=== PATIENT | female | born 1965 | race African-American/Black ===

== ENCOUNTER 2016-06-23 13:42 | Emergency (ER) | payer MEDICARE, OTHER ==
[~2016-06-23] VITALS: Ht 157.5 cm; Wt 78.0 kg
[2016-06-23 14:20] VITALS: BP 168/95
[2016-06-23] MEDS ORDERED: SILV20CR4 TP (15:11)
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
== END 2016-06-23 15:20 | disposition home or self-care (01) ==
LOC: ER 13:42
DX: T23.121A Burn of first degree of single right finger (nail) except thumb, initial encounter (principal); T23.261A Burn of second degree of back of right hand, initial encounter; Z88.0 Allergy status to penicillin; Z88.5 Allergy status to narcotic agent; Z91.013 Allergy to seafood; X10.2XXA Contact with fats and cooking oils, initial encounter; Y93.89 Activity, other specified; Y92.090 Kitchen in other non-institutional residence as the place of occurrence of the external cause; Y99.8 Other external cause status
CPT/HCPCS: 99283

== ENCOUNTER 2016-07-27 12:11 | Emergency (ER) | payer OTHER, MEDICARE ==
[~2016-07-27] VITALS: Ht 157.5 cm; Wt 73.0 kg
[~2016-07-27 12:11] MED LIST: SILV20CR4 TP
--- NOTE | 2016-07-27 14:37 | RAD ---
EXAM: Right knee, 3 views. HISTORY: Pain. COMPARISON: None. FINDINGS: Frontal, lateral and oblique views of the right knee are obtained. There is a lateral compartment unicompartmental knee arthroplasty. There is mild medial compartment joint space narrowing and chondrocalcinosis. There is no fracture, dislocation or subluxation. No effusion is seen. There are vascular calcifications. IMPRESSION: 1. Lateral compartment unicompartmental knee arthroplasty. 2. Mild medial compartment joint space narrowing with subchondral sclerosis.
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
--- NOTE | 2016-07-27 14:38 | RAD ---
EXAM: Right tibia and fibula, 2 views. HISTORY: Pain. COMPARISON: None. FINDINGS: Frontal and lateral views of the tibia and fibula are obtained. There is no fracture, dislocation or subluxation. There are vascular calcifications. The knee is excluded from the [id number]. IMPRESSION: No acute osseous finding.
[2016-07-27] MEDS ORDERED: HYDR-971 PO (15:18)
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
[2016-07-27 15:25] VITALS: BP 142/71
== END 2016-07-27 15:36 | disposition home or self-care (01) ==
LOC: ER 12:11
DX: M79.604 Pain in right leg (principal); M25.561 Pain in right knee; M25.551 Pain in right hip; N19 Unspecified kidney failure; Z99.2 Dependence on renal dialysis; Z88.0 Allergy status to penicillin; Z88.5 Allergy status to narcotic agent; Z91.013 Allergy to seafood; V49.40XA Driver injured in collision with unspecified motor vehicles in traffic accident, initial encounter; Y93.89 Activity, other specified; Y99.8 Other external cause status; Y92.89 Other specified places as the place of occurrence of the external cause
CPT/HCPCS: 73502; 73562; 73590; 99284

== ENCOUNTER 2016-08-14 18:24 | Emergency (ER) | payer MEDICARE, OTHER ==
[~2016-08-14] VITALS: Ht 157.5 cm; Wt 80.3 kg
[~2016-08-14 18:24] MED LIST changes: +HYDR-971 PO
[2016-08-14 18:27] VITALS: BP 130/65
--- NOTE | 2016-08-14 18:57 | PHYS DOC ---
Past Medical History Past Medical History: Other Additional Past Medical Histor: HX DIALYSIS, R RENAL FAILURE Past Surgical History: Cholecystectomy, Other Additional Past Surgical Histo: RIGHT KIDNEY TRANSPLANT, graft placement, thyroidectomy Alcohol Use: None Drug Use: None Adult General Chief Complaint Chief Complaint: EYE PROBLEMS HPI HPI Patient is a 50 year old female presents emergency department stating that she was cleaning when some bleach flew up into her eyes around 4:00 this afternoon. She states that she did try to rinse her eyes out for approximately 10 seconds with no relief. She states she did have her eyeglasses on although she states that her eyes are still stinging and burning. They appear to be very red and swollen. She denies any visual difficulty. She denies any drainage from the eyes. Review of Systems Review of Systems Constitutional: Denies fever or chills [] Eyes: Denies change in visual acuity, C/o bilateral eye redness, with stinging of bilateral eyes HENT: Denies nasal congestion or sore throat [] Respiratory: Denies cough or shortness of breath [] Cardiovascular: No additional information not addressed in HPI [] GI: Denies abdominal pain, nausea, vomiting, bloody stools or diarrhea [] : Denies dysuria or hematuria [] Musculoskeletal: Denies back pain or joint pain [] Integument: Denies rash or skin lesions [] Neurologic: Denies headache, focal weakness or sensory changes [] Current Medications Current Medications Current Medications Medications (Trade) Dose Ordered Sig/[place] Start Time Stop Time Status Last Admin Dose Admin Tetracaine HCl (Tetracaine) 1 drop 1X ONCE 08/14/16 19:00 08/14/16 19:01 DC 08/14/16 18:54 1 DROP Allergies Allergies Allergies Coded Allergies Type Severity Reaction Last Updated Verified Penicillins Allergy Intermediate 06/23/16 Yes morphine Allergy Intermediate 06/23/16 Yes shellfish derived Allergy Intermediate 06/23/16 Yes Physical Exam Physical Exam Constitutional: Well developed, well nourished, no acute distress, non-toxic appearance. [] HENT: Normocephalic, atraumatic, bilateral external ears normal, oropharynx moist, no oral exudates, nose normal. [] Eyes: PERRLA, EOMI, conjunctiva red with no drainage or discharge noted bilateral eyes appear to be swollen. Neck: Normal range of motion, no tenderness, supple, no stridor. [] Cardiovascular:Heart rate regular rhythm, no murmur [] Lungs & Thorax: Bilateral breath sounds clear to auscultation [] Skin: Warm, dry, no erythema, no rash. [] Back: No tenderness Extremities: No tenderness, no cyanosis, no clubbing, ROM intact, no edema. [] Neurologic: Alert and oriented X 3, normal motor function, normal sensory function, no focal deficits noted. [] Psychologic: Affect normal, judgement normal, mood normal. [] Current Patient Data Vital Signs Vital Signs Date Time Temp Pulse Resp B/P Pulse Ox O2 Delivery O2 Flow Rate FiO2 08/14/16 18:27 97.7 77 20 100 Room Air 97.7 EKG EKG [] Radiology/Procedures Radiology/Procedures [] Course & Med Decision Making Course & Med Decision Making Pertinent Labs and Imaging studies reviewed. (See chart for details) Tetracaine was placed in bilateral eyes with eye irrigation for approximately 15 minutes was provided. Poison control was notified in regards to chemical's to bilateral eyes. The recommendations was to place tetracaine in bilateral eyes and irrigate. Patient states that her eyes feel much better after the irrigation's. Patient will be discharged home with recommendations to follow-up with ophthalmology if she has any eye drainage or any eye discomfort. She was provided with Dr. Calderon's name and number. Patient will be discharged home in stable condition recommended using safety glasses whenever working around chemicals. Patient agrees with discharge instructions treatment regimens and follow-up recommendations. [] Dragon Disclaimer Dragon Disclaimer This electronic medical record was generated, in whole or in part, using a voice recognition dictation system. Departure Departure Impression: Primary Impression: Chemical exposure of eye Disposition: 01 HOME, SELF-CARE Condition: STABLE Referrals: UNKNOWN PCP NAME (PCP) JERRI CALDERON MD Patient Instructions: Eye - Conjunctival Foreign Body Additional Instructions: Activity as tolerated. Tylenol for pain and discomfort. Medication as prescribed. You may use ice packs to the eyes to help with pain and irritation as well as swelling. Follow-up with Dr. Calderon as needed for continued eye irritation. Return back to emergency department sign symptoms of become worse. Scripts Ofloxacin (Ocuflox)5 Ml Drops1-2 Drop EACHEYE BID #[address] in the right eye for the next 7 days Prov:KAYLA FALL CUSTOM FEED CORN OPERATOR 08/14/16 KAYLA FALL APRN Aug 14, 2016 18:57
[2016-08-14] MEDS ORDERED: TETRACAINE 0.5% OPHTH SOLUTION 4ML BOTTLE. OU ONE (19:00)
[2016-08-14] MEDS ORDERED: OFLO5DRO EACHEYE (19:54)
== END 2016-08-14 20:02 | disposition home or self-care (01) ==
LOC: ER 18:24
DX: Z77.098 Contact with and (suspected) exposure to other hazardous, chiefly nonmedicinal, chemicals (principal); N18.9 Chronic kidney disease, unspecified; Z94.0 Kidney transplant status; Z99.2 Dependence on renal dialysis; Z88.5 Allergy status to narcotic agent; Z91.013 Allergy to seafood; Z88.0 Allergy status to penicillin
CPT/HCPCS: 99283

== ENCOUNTER 2016-09-07 23:35 | Emergency (ER) | payer MEDICARE, OTHER ==
[~2016-09-07] VITALS: Ht 157.5 cm; Wt 79.4 kg
[~2016-09-07 23:35] MED LIST changes: +OFLO5DRO EACHEYE
[2016-09-07 23:58] VITALS: BP 193/83
[2016-09-08] MEDS ORDERED: HYDR-971 PO (00:21)
[2016-09-08] MEDS ORDERED: ACYC800T PO (00:21)
--- NOTE | 2016-09-08 00:21 | PHYS DOC ---
Past Medical History Past Medical History: Other Additional Past Medical Histor: HX DIALYSIS, R RENAL FAILURE Past Surgical History: Cholecystectomy, Other Additional Past Surgical Histo: RIGHT KIDNEY TRANSPLANT, graft placement, thyroidectomy Alcohol Use: None Drug Use: None Adult General Chief Complaint Chief Complaint: SKIN RASH/ABSCESS [facility] Patient is a 50 year old female presents emergency department stating that she has a rash on the left side of her body in her upper breast and back area. Patient states she's had this for the last 2-3 days. She denies any fever, chills or any nausea vomiting. She denies any drainage coming from the site. Patient does have a history of being on dialysis. She is allergic to morphine and penicillin. Review of Systems Review of Systems Constitutional: Denies fever or chills [] Eyes: Denies change in visual acuity, redness, or eye pain [] HENT: Denies nasal congestion or sore throat [] Respiratory: Denies cough or shortness of breath [] Cardiovascular: No additional information not addressed in HPI [] GI: Denies abdominal pain, nausea, vomiting, bloody stools or diarrhea [] : Denies dysuria or hematuria [] Musculoskeletal: Denies back pain or joint pain [] Integument: rash denies skin lesions [] Neurologic: Denies headache, focal weakness or sensory changes [] Endocrine: Denies polyuria or polydipsia [] Allergies Allergies Allergies Coded Allergies Type Severity Reaction Last Updated Verified Penicillins Allergy Intermediate 06/23/16 Yes morphine Allergy Intermediate 06/23/16 Yes shellfish derived Allergy Intermediate 06/23/16 Yes Physical Exam Physical Exam Constitutional: Well developed, well nourished, no acute distress, non-toxic appearance. [] HENT: Normocephalic, atraumatic, bilateral external ears normal, oropharynx moist, no oral exudates, nose normal. [] Eyes: PERRLA, EOMI, conjunctiva normal, no discharge. [] Neck: Normal range of motion, no tenderness, supple, no stridor. [] Cardiovascular:Heart rate regular rhythm, no murmur [] Lungs & Thorax: Bilateral breath sounds clear to auscultation [] Skin: Warm, dry, no erythema. Patient with a rash noted on her upper body on the left chest and left upper back area. Patient appears to have pustular type areas. Back: No tenderness Extremities: No tenderness, no cyanosis, no clubbing, ROM intact, no edema. [] Neurologic: Alert and oriented X 3, normal motor function, normal sensory function, no focal deficits noted. [] Psychologic: Affect normal, judgement normal, mood normal. [] Current Patient Data Vital Signs Vital Signs Date Time Temp Pulse Resp B/P (MAP) Pulse Ox O2 Delivery O2 Flow Rate FiO2 09/07/16 23:58 97.5 72 20 100 Room Air 97.5 EKG EKG [] Radiology/Procedures Radiology/Procedures [] Course & Med Decision Making Course & Med Decision Making Pertinent Labs and Imaging studies reviewed. (See chart for details) Patient will be discharged home with instructions on shingles. She'll be provided with hydrocodone for pain and discomfort. She'll also be instructed to take acyclovir. She is instructed to avoid contact with people as well as people that have not had chickenpox in the past. Patient will be discharged home in stable condition with recommendations to follow-up with primary care physician for any further pain control. Patient agrees with discharge instructions treatment regimens and follow-up recommendations. Patient was also instructed to keep the areas clean dry and cool. [] Dragon Disclaimer Dragon Disclaimer This electronic medical record was generated, in whole or in part, using a voice recognition dictation system. Departure Departure Impression: Primary Impression: Shingles rash Disposition: 01 HOME, SELF-CARE Condition: STABLE Referrals: UNKNOWN PCP NAME (PCP) Patient Instructions: Shingles, [id number] Additional Instructions: Activity as tolerated. Medications as prescribed. Hydrocodone will cause drowsiness do not take any be alert and oriented. Keep the areas clean dry and cool. Follow-up with your primary care physician for further pain control. Return back to emergency department for signs and symptoms of become worse. Scripts Hydrocodone/Apap 5-325 (NORCO 5-325 TABLET) 1 Each Tablet 1 TAB PO PRN Q6HRS Y for PAIN, #15 TAB 0 Refills Prov: KAYLA FALL APRN 09/08/16 Acyclovir (ACYCLOVIR) 800 Mg Tablet 1 TAB PO 5XDAY, #50 TAB Prov: KAYLA FALL SCALE TECHNICIAN 09/08/16 KAYLA FALL APRN September 08, 2016 00:21
== END 2016-09-08 00:25 | disposition home or self-care (01) ==
LOC: ER 23:35
DX: B02.9 Zoster without complications (principal); N18.9 Chronic kidney disease, unspecified; E89.0 Postprocedural hypothyroidism; Z99.2 Dependence on renal dialysis; Z88.0 Allergy status to penicillin; Z88.5 Allergy status to narcotic agent; Z91.013 Allergy to seafood; Z90.49 Acquired absence of other specified parts of digestive tract; Z94.0 Kidney transplant status
CPT/HCPCS: 99283

== ENCOUNTER 2017-07-13 09:38 | Emergency (ER) | payer MEDICARE, OTHER | END 2017-07-13 10:08 | disposition home or self-care (01) | LOC: ER 09:38 | DX: L23.9 Allergic contact dermatitis, unspecified cause (principal); Z99.2 Dependence on renal dialysis; Z88.0 Allergy status to penicillin; Z88.5 Allergy status to narcotic agent; Z91.013 Allergy to seafood | CPT/HCPCS: 99283 ==